=== PATIENT | female | born 1980 | race Caucasian/White ===

== ENCOUNTER 2020-10-15 08:56 | Emergency (ER) | payer BC ==
[~2020-10-15] VITALS: Ht 160 cm; Wt 112.7 kg
[2020-10-15 08:58] VITALS: BP 116/62; Ht 160 cm; Wt 112.7 kg
[2020-10-15] MEDS ORDERED: PROBIOTIC1 EAC1 (08:59)
== END 2020-10-15 09:38 | disposition home or self-care (01) ==
LOC: D.ER 08:56
DX: S05.01XA Injury of conjunctiva and corneal abrasion without foreign body, right eye, initial encounter (principal); W22.8XXA Striking against or struck by other objects, initial encounter; Y93.9 Activity, unspecified; Y92.9 Unspecified place or not applicable